=== PATIENT | female | born 1945 | race Caucasian/White ===

== ENCOUNTER 2016-12-14 14:43 | Emergency (ER) | payer OTHER ==
[2016-12-14 14:49] VITALS: PULSE 78; RESP 16
--- NOTE | 2016-12-14 15:10 | EDPHY ---
H & P Time Seen by Provider: 12/14/16 14:50 HPI/ROS: CHIEF COMPLAINT: Rectal bleeding HISTORY OF PRESENT ILLNESS: Her patient has history of hemorrhoids and had a colonoscopy 1 year ago by her burr machine operator in [place] which was negative. She did not have polyps and did not sustain any biopsies. Over the past 3 weeks she has had intermittent bright red blood in the toilet. She says when she urinates and relaxes she has a little bit of bright red blood in the toilet. When she has a bowel movement there are some spots of bright red blood with bowel movement. No rectal pain, no chest pain or shortness of breath, no abdominal pain or vomiting. REVIEW OF SYSTEMS: Eye: no change in vision ENT: no sore throat Cardiac: no chest pain or syncope Pulmonary: no cough or SOB Abdomen: no vomiting, diarrhea, abdominal pain Musculoskeletal: no back pain Skin: no rash Neuro: no headache Constitutional: no fever : No hematuria or dysuria, some itchy discharge vaginally for the past couple of days A comprehensive 10 point review of systems is otherwise negative aside from elements mentioned in the history of present illness. PAST MEDICAL HISTORY: Ectopic with surgery, hypothyroid Social history: Primary care in [place] General Appearance: Alert and conversant, cooperative. Eyes: No scleral icterus. ENT, Mouth: Normal mucous membranes. Respiratory: Normal respiratory effort, breath sounds equal, lungs are clear to auscultation. Cardiovascular: Regular rate and rhythm. Gastrointestinal: Abdomen is soft and non tender. Rectal exam and anoscopy performed with nurse in the room shows inflamed internal hemorrhoids without active bleeding and no bleeding proximal to the tip of the anoscope. Neurological: Alert and oriented x3. Normally conversant. Face symmetric, normal movement and sensation in all extremities. Skin: No petechiae or purpura, no bruising. Musculoskeletal: No peripheral edema and no joint swelling. Psychiatric: Not agitated. Emergency Department course/MDM: Clinically has internal hemorrhoids, will check CBC and if normal treat with suppository and referral back to her GI. 1525: Hematocrit 27, will check with her primary care physician in [place] what her baseline is. I received hematocrit from her primary care office that was 40.4 on 04/02/2016. I recommended the patient she be admitted for colonoscopy as she has lost 13 points of her hematocrit since March. Although clinically she is less likely to have lower GI bleed than hemorrhoids I felt with the degree of anemia that this would be better care. The patient asked me to call Dr. Mobley her burr machine operator in [place] and they cannot see or any sooner than the appointment she has 10 days from now. The patient tells me she wants to leave and follow up as an outpatient with Gastroenterology. She is warned that this could delay a diagnosis of internal bleeding with possible morbidity and mortality, she states that these are risks she is willing to take as she would prefer to follow up with her own regular provider. Diflucan provided for her vaginal itching and discharge probable yeast infection. Encouraged to return if she changes her mind. She clearly has capacity to make decisions regarding her care. Smoking Status: Never smoked Constitutional: Initial Vital Signs Temperature (C) 37.2 C 12/14/16 14:47 Heart Rate 78 12/14/16 14:47 Respiratory Rate 16 12/14/16 14:47 Blood Pressure 118/49 L 12/14/16 14:47 O2 Sat (%) 96 12/14/16 14:47 O2 Delivery Mode Room Air Allergies/Adverse Reactions: No Known Allergies Allergy (Verified 11/23/14 13:54) Home Medications: Medication Instructions Recorded Synthroid 11/23/14 Fluconazole [Diflucan (*)] 150 mg PO ONCE #2 tab 12/14/16 Medical Decision Making - Data Points Laboratory Results: Laboratory Results 12/14/16 15:05 12/14/16 15:05 WBC 7.11 10^3/uL 10^3/uL (3.80-9.50) RBC 2.98 10^6/uL L 10^6/uL (4.18-5.33) Hgb 9.5 g/dL L g/dL (12.6-16.3) Hct 27.7 % L % (38.0-47.0) MCV 93.0 fL fL (81.5-99.8) MCH 31.9 pg pg (27.9-34.1) MCHC 34.3 g/dL g/dL (32.4-36.7) RDW 15.1 % % (11.5-15.2) Plt Count 230 10^3/uL 10^3/uL (150-400) MPV 10.3 fL fL (8.7-11.7) Neut % (Auto) 58.0 % % (39.3-74.2) Lymph % (Auto) 15.0 % % (15.0-45.0) [place] % (Auto) 11.8 % % (4.5-13.0) Eos % (Auto) 13.8 % H % (0.6-7.6) Baso % (Auto) 0.8 % % (0.3-1.7) Nucleat RBC Rel Count 0.0 % % (0.0-0.2) Absolute Neuts (auto) 4.12 10^3/uL 10^3/uL (1.70-6.50) Absolute Lymphs (auto) 1.07 10^3/uL 10^3/uL (1.00-3.00) Absolute Monos (auto) 0.84 10^3/uL H 10^3/uL (0.30-0.80) Absolute Eos (auto) 0.98 10^3/uL H 10^3/uL (0.03-0.40) Absolute Basos (auto) 0.06 10^3/uL 10^3/uL (0.02-0.10) Absolute Nucleated RBC 0.00 10^3/uL 10^3/uL (0-0.01) Immature Gran % 0.6 % % (0.0-1.1) Immature Gran # 0.04 10^3/uL 10^3/uL (0.00-0.10) Departure - Departure Disposition: Home, Routine, Self-Care Clinical Impression: Hemorrhoids Qualifiers: Hemorrhoid type: unspecified Qualified Code(s): K64.9 - Unspecified hemorrhoids Condition: Good Instructions: Hemorrhoids (ED) Additional Instructions: It is possible that you have a lower gastrointestinal bleed. The emergency physician recommended you stay in the hospital for consultation and scope. Please return immediately if you get worsening or severe bleeding, chest pain or shortness of breath, dizziness or fainting. You're referred to the on-call [place] burr machine operator. Please follow up with our burr machine operator or yours in [place] this week. Referrals: BAILEY LAWSON [Primary Care Provider] - As per Instructions Glenn Dennis MD [Medical Doctor] - As per Instructions Prescriptions: Fluconazole [Diflucan (*)] 150 mg PO ONCE #2 tab
[2016-12-14 15:19] LABS: % IMMATURE GRANULYOCYTES 0.6 % (0.0-1.1); ABSOLUTE IMMATURE GRANULOCYTES 0.04 10^3/uL (0.00-0.10); ADD DIFF? NO; ADD MORPH? NO; ADD SCAN? NO; ATYPICAL LYMPHOCYTE FLAG 40 (0-99); FRAGMENT RBC FLAG 0 (0-99); HEMATOCRIT 27.7 % (38.0-47.0); HEMOGLOBIN 9.5 g/dL (12.6-16.3); LEFT SHIFT FLG 70 (0-99); LIPEMIA HEMOLYSIS FLAG 90 (0-99); MEAN CELL HEMOGLOBIN 31.9 pg (27.9-34.1); MEAN CELL HEMOGLOBIN CONCENTR. 34.3 g/dL (32.4-36.7); MEAN PLATELET VOLUME 10.3 fL (8.7-11.7); PLATELET CLUMPS FLAG 0 (0-99); PLATELET COUNT 230 10^3/uL (150-400); RED BLOOD CELL COUNT 2.98 10^6/uL (4.18-5.33); RED CELL DISTRIBUTION WIDTH 15.1 % (11.5-15.2)
[2016-12-14 17:14] VITALS: BP 121/58; TEMP 98.6; O2SAT 97
== END 2016-12-14 17:11 | disposition home or self-care (01) ==
DX: K64.9 Unspecified hemorrhoids (principal)

== ENCOUNTER 2017-09-19 18:20 | Emergency (ER) | payer OTHER ==
--- NOTE | 2017-09-19 19:19 | EDPHY ---
H & P Stated Complaint: upper lip laceration, fell on face. Source: Patient Exam Limitations: No limitations - Personal History Current Tetanus Diphtheria and Acellular Pertussis (TDAP): No - Medical/Surgical History Hx Asthma: No Hx Chronic Respiratory Disease: No Hx Diabetes: No Hx Cardiac Disease: No Hx Renal Disease: No Hx Cirrhosis: No Hx Alcoholism: No Hx HIV/AIDS: No Hx Splenectomy or Spleen Trauma: No Other PMH: hypothyroidism treated,ectopic with surgery - Social History Smoking Status: Never smoked Time Seen by Provider: 09/19/17 18:53 HPI/ROS: Chief Complaint: Facial laceration HPI: The patient presents the emergency department after she tripped and fell at home. She sustained a lip 1.5 cm laceration above her upper lip. The patient denies any chest pain, shortness of breath or difficulty breathing. The patient reports her tetanus shot is likely up today. REVIEW OF SYSTEMS: Neuro: no headache, numbness, weakness Musculoskeletal: as above Skin: As above (Bob Chowdary) - Physical Exam Exam: General Appearance: Alert, no distress Head: 1.5 cm laceration noted above the lip Eyes: Pupils equal, round, reactive ENT, Mouth: No hemotympanum, no oral trauma Neck: Nontender, trachea midline Respiratory: No chest wall tender, subcutaneous air, lungs clear bilaterally Cardiovascular: Regular rate and rhythm Extremities: Nontender, full range of motion Neurological: GCS 15 (Bob Chowdary) Constitutional: Initial Vital Signs Heart Rate 75 09/19/17 18:20 Respiratory Rate 18 09/19/17 18:20 Blood Pressure 160/76 H 09/19/17 18:20 O2 Sat (%) 94 09/19/17 18:20 O2 Delivery Mode Room Air Allergies/Adverse Reactions: No Known Allergies Allergy (Verified 11/23/14 13:54) Home Medications: Medication Instructions Recorded Synthroid 11/23/14 Medical Decision Making Procedures: I was asked by Dr. Salvador Chowdary to repair upper lip laceration. The patient has the upper lip laceration with overlying abrasion. Laceration repair. Verbal consent was obtained from the patient. The 1 cm irregular flap laceration on the upper lip above the vermilion border was anesthetized using 1 % lidocaine with epinephrine. The wound was irrigated with saline, draped and explored to its base with a gloved finger. There were no deep structures involved. The wound was repaired with 6 0 Prolene, 4 sutures. The wound repair was simple. The procedure was performed by myself. (Perlita Whitten) ED Course/Re-evaluation: The patient presents the ED with a simple laceration above her upper lip. She has no evidence of significant dental injury. She has no evidence of a closed head injury. The patient had a laceration repaired by the physician nurses assistant under my supervision. The patient will return in 5 days and suture removal. (Bob Chowdary) Departure - Departure Disposition: Home, Routine, Self-Care Clinical Impression: Lip laceration Qualifiers: Encounter type: initial encounter Qualified Code(s): S01.511A - Laceration without foreign body of lip, initial encounter Facial abrasion Qualifiers: Encounter type: initial encounter Qualified Code(s): S00.81XA - Abrasion of other part of head, initial encounter Condition: Good Instructions: Care For Your Stitches (ED), Laceration (ED), Acute Wounds (ED) Additional Instructions: Wound Care Follow-Up: Removal of sutures in 5 days. Suture removal is complimentary in uncomplicated cases. Infection or abnormal findings would require reevaluation by the MD. In that case, you may be billed. Bacitracin to the wounds as discussed. Return to the emergency department if you notice any signs or symptoms of infection such as redness, swelling, increased pain, fever, purulent drainage. Sunscreen will help minimize scarring after the wound has healed and the sutures have been removed. Referrals: BAILEY LAWSON [Primary Care Provider] - As per Instructions
[2017-09-19 20:37] VITALS: BP 150/80
== END 2017-09-24 18:41 | disposition home or self-care (01) ==
PROC: 0CQ0XZZ Repair Upper Lip, External Approach (ICD-10-PCS; principal; 2017-09-19)
DX: S01.511A Laceration without foreign body of lip, initial encounter (principal); W01.0XXA Fall on same level from slipping, tripping and stumbling without subsequent striking against object, initial encounter; Y92.009 Unspecified place in unspecified non-institutional (private) residence as the place of occurrence of the external cause